=== PATIENT | female | born 1975 | race Caucasian/White ===

== ENCOUNTER 2017-02-06 07:07 | Day surgery (SDC) | payer SELFPAY ==
[~2017-02-06] VITALS: Ht 185.4 cm; Wt 104.3 kg
[2017-02-06] VITALS (8 sets, daily range): BP systolic 95–164; BP diastolic 50–82
[~2017-02-06 07:07] MED LIST: CEPH500C PO; MECL-124 PO; METO5TAB2 PO; NITR-65 PO; ONDA4TAB11 PO
--- OUTSIDE RECORDS SUMMARY | 2017-02-06 07:16 | XMS REPORT | Continuity of Care Document ---
Author Author [employer] Organization [facility] Address Unknown Phone Unavailable Care Team Providers Care Director Of Manufacturing Name Role Phone [employer] Unavailable Unavailable Problems Medications Allergies, Adverse Reactions, Alerts Immunizations Results Vital Signs Encounters Location Location Details Encounter Type Encounter Number Reason For Visit Attending Provider ADM Date DC Date Status Source OUTPATIENT [id number] RAJESH WYMAN 08/29/20162016 Active [facility] OUTPATIENT [id number] RAJESH WYMAN 11/28/20162016 Active [facility] OUTPATIENT 12/14/2016 Active [facility] OUTPATIENT [id number] 12/14/2016 Active [facility] Procedures Plan of Care Social History Assessment and Plan Family History Value Date Source Advance Directives Order Name Results Value Date Source
--- OUTSIDE RECORDS SUMMARY | 2017-02-06 07:16 | XMS REPORT | Clinical Summary ---
Author Author [facility] Organization [facility] Address Unknown Phone Unavailable Care Team Providers Care Spindle Plumber Name Role Phone PCP Unavailable Source Comments Some departments are not documenting in the electronic medical record. If you do not see the information that you expected, contact Release of Information in the Health Information Management department at [phone] for further assistance in locating additional records.[facility] Allergies Active Allergy Reactions Severity Noted Date Comments Prochlorperazine NAUSEA AND VOMITING, 05/17/2010 Edisylate BLURRED VISION Sumatriptan Succinate NAUSEA AND VOMITING 05/17/2010 Penicillins RASH 04/22/2010 Current Medications Prescription Sig. Disp. Refills Start End Date Status Date acetaminophen SR(+) Take 650 mg by mouth Active (TYLENOL ARTHRITIS) 650 every 6 hours as needed. mg PO tablet metoprolol tartrate Take 0.5 Tabs by mouth 180 Tab 1 07/27/19 Active (LOPRESSOR) 100 mg tablet three times daily. July 19 take an additional 1/2 tab for a total of 200mg/day ALPRAZolam (XANAX) 0.25 Take 1 Tab by mouth twice 60 Tab 5 09/15/19 Active mg tablet daily as needed for 17 Anxiety. Active Problems Problem Noted Date Pacemaker lead malfunction 03/31/2016 Overview: 03/2016 Noise on A lead, change sensitivity from auto to 1.0mV ICD (implantable cardioverter-defibrillator) malfunction 03/31/2016 Overview: Battery advisory for potential accelerated depletion 03/2016-normal to date, 3 years on battery, remote in place, vibratory alert on, educated etc Sustained VT (ventricular tachycardia) (HCC) 02/11/2015 Overview: 01/2015: off beta pati. Sustained monomrphic VT ~210BPM. Predominant 1:1 VA but some VA block. Term w/ ATP and w/ shocks. 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 02/11/2015 Syncope 05/20/2010 Family history of long QT syndrome 05/20/2010 Long QT syndrome 05/17/2010 Overview: S/p ICD on 05/2010 Son carries dx Mom has ICD (post arrest X 3) 08/13 Familion gene testing "negative" Pt has Long QT, syncope & NSVT (Symptoms w/ NSVT on TM are something she says are common and often associated with near syncope.) 07/14: admits rarely takes her beta pati-will redouble efforts Arthritis 04/22/2010 Restless leg syndrome 04/22/2010 Shortness of breath 04/22/2010 DJD (degenerative joint disease) 04/22/2010 Encounters Date Type Specialty Care Team Description 12/14/2016 [facility] Cardiology Yaneth Nguyen, Encounter AUTOMOBILE MECHANIC-LINE PALLETIZER 12/14/2016 Office Visit Cardiology Yaneth Nguyen, Swelling ( swelling of AUTOMOBILE MECHANIC-LINE PALLETIZER legs and hand); Panic Attack 12/14/2016 Documentation Cardiology Marco A Canchola, ALEXIS Records Request ([facility]) 12/13/2016 Telephone Cardiology Camila Dugan RN Follow-up Phone Call 11/28/2016 Hospital Cardiology Julissa Geiger MD Encounter 11/28/2016 Telephone Cardiology Anjelica Astorga, ALEXIS Appointment Request 11/21/2016 Telephone Cardiology Zunilda Cox, lubrication technician Question from Last 3 Months Family History Relation Name Status Comments Brother Alive Father COPD, TB (Age 47) Mother Alive age 49 has long QT, has defibrillator Other SON 17 HX OF Alive LONG QT SYN Sister Alive Social History Tobacco Use Types Packs/Day Years Used Date Never Smoker Smokeless Tobacco: Never Used Alcohol Use Drinks/Week oz/Week Comments No rare every 6 months Sex Assigned at Date Recorded Not on file Last Filed Vital Signs Vital Sign Reading Time Taken Blood Pressure 100/70 12/14/2016 1:46 PM CDT Pulse 70 12/14/2016 1:46 PM CDT Temperature 36.9 C (98.4 F) 02/11/2015 9:22 AM KNITTING MACHINE MECHANIC Respiratory Rate - - Oxygen Saturation 100% 02/11/2015 9:22 AM KNITTING MACHINE MECHANIC Inhaled Oxygen - - Concentration Weight 99.7 kg (219 lb 12.8 oz) 12/14/2016 1:46 PM CDT Height 182.9 cm (6') 12/14/2016 1:46 PM CDT Body Mass Index 29.81 12/14/2016 1:46 PM CDT Plan of Treatment Health Maintenance Due Date Last Done Comments PHYSICAL (COMPREHENSIVE) 1980 EXAM PERTUSSIS VACCINE 1984 TETANUS VACCINE 1990 CERVICAL CANCER SCREENING 07/04/2003 BREAST CANCER SCREENING 2013 INFLUENZA VACCINE 10/03/2016 Results * DEVICE EVALUATION - ICD (12/14/2016 3:14 PM) Component Value Ref Range Atrial Lead Model # Trendil 2088TC Atrial Lead Serial # [id number] Atrial Lead Implant Date 05/20/2010 Atrial Lead Diaph. 0 Stimulation Atrial Lead Tube Turner [facility] [place] Atrial Lead No Investigational Atrial Lead Fixation active fixation Atrial Lead Location right atrial appendage Atrial Lead Pin Connector IS1 Atrial Lead Polarity Bipolar RV Lead Model # Durata 7122 RV Lead Serial # [id number] RV Lead Implant Date 08/20/2010 RV Lead Diaph. 0 Stimulation RV Lead Tube Turner [facility] [place]hav[place] RV Lead Investigational No RV Lead Fixation active fixation RV Lead Location RV low septum RV Lead Coil Single Generator Model # FortifyDR [id number] Generator Serial # [id number] Generator Implnat Date 05/20/2010 KEYANNA/EOL Indicator programmer operator numerical control/transmitter indicated Generator Tube Turner [facility] [place]hav[place] Generator Investigational No Wireless Generator Yes Device Type DDD-ICD Device Mode DDD Lower Rate Limit 60 Upper Rate Limit 110 Sensor Rate Limit - Pace AV Delay 200+ VIP 200 Sense AV Delay 200+ VIP 200 VT Monitor - VT Detect Rate (bpm) 200 VT Detect Rate Tx ATP x 3 , shocks FVT Detect Rate (bpm) - FVT Detect Rate Tx - VF Detect Rate (bpm) 240bpm VF Detect Rate Tx ATP(1), 36Jx1, 40Jx5 Mode Switch (bpm) 190 bpm to DDI, AMS base rate 70 Mode Switch Status On Device Implanted By Julissa Geiger MD Pacemaker Dependant No Date of Last Programming 12/14/16 HF Patient Yes Date of Last Remote Check 11/28/16 Next Remote Check Due 02/2017 Enrollment Date gave cell adapter 02/11/15 AT/AF Daily [place] Hours 6 hr episode, 12 hrs per week Average Vent Rate during 100 AT/AF #BPM Average Vent Rate During 6 AT/AF #Hours Remote Monitoring? Yes Daily [place] Threshld On Alert? Average Venticular Rate On AT/AF On/Off VF Detection/Therapy Off On EP Device Followed by Dr. Geiger Name EP Device Followed By MAC Device [place] Inter[employer] On Demand Transmitter Compatible -VS% 96 -BELLY ROLLER% <1 -VS% 3.8 AP-BELLY ROLLER% <1 # Mode S. Events 4592 Time in AT/AF <1% # of VT Events 0 # of FVT Events 0 # of VF Events 0 # of NSVT Events 0 Single PVSc <1% Battery Voltage 31% Charge Time 9.0 Defib Lead Imped 62 A Sense mv 2.1 A Capture V 0.5 A Capture ms 0.5 A Lead ohms 350 RV Sense mv 7.1 RV Capture V 1.0 RV Capture ms 0.5 RV Lead ohms 340 Counters Clrd Yes Device Function WNL Yes Device Reprogram No Ao Voltage 1.5 AO Pulse Width 0.5 RV Voltage 2.0 RV Pulse Width 0.5 # High V Events 0 Estimated Longevity 2.5 to 3.0 years Initial Rhythm ASVS NSR 70 bpm Programming? Yes Interrogation? Yes ICM Evaluation Yes Remote Check? No Specimen Performing Laboratory OTHER OUTSIDE LAB Narrative [12/15/2016 6:34:54 AM - GREG MONGE] Dual chamber ICD programming + ICM.Device function appears normal. Events noted since 03/31/16: Atrial:4592 AMS episodes (<1% burden). Egms show noise on atrial lead. Known issue/previously documented. Atrial lead is stable. Ventricular:0 17 PMT detections. I was going to run a retrograde VA conduction test but pt became very anxious/nervous and I was unable to run. Thoracic Impedance trend shows possible fluid accumulation and/or possible early heart failure. Changes made to programming:none [place] remote monitoring is in place. Will continue to monitor. Report given to Yaneth Nguyen in clinic and sent to [facility] for review. * ECG/QRS (12/14/2016) Component Value Ref Range QRS DURATION 78 Specimen Performing Laboratory OTHER OUTSIDE LAB * DEVICE EVALUATION - REMOTE ICD (11/29/2016 10:02 AM) Component Value Ref Range Atrial Lead Tube Turner Other Atrial Lead Model # Trendil 2088TC Atrial Lead Serial # [id number] Atrial Lead Implant Date 05/20/2010 Atrial Lead Location Other Atrial Lead Polarity Other Atrial Lead Diaph. 0 Stimulation Atrial Lead Tube Turner [facility] [place]hav[place] Atrial Lead No Investigational Atrial Lead Fixation active fixation Atrial Lead Location right atrial appendage Atrial Lead Pin Connector IS1 Atrial Lead Polarity Bipolar RV Lead Tube Turner Other RV Lead Model # Durata 7122 RV Lead Serial # [id number] RV Lead Implant Date 08/20/2010 RV Lead Location Other RV Lead Diaph. 0 Stimulation RV Lead Tube Turner [facility] [place]hav[place] RV Lead Investigational No RV Lead Fixation active fixation RV Lead Location RV low septum RV Lead Pin Connector ICD RV Lead Coil Single Generator Tube Turner Other Generator Model # FortifyDR [id number] Generator Serial # [id number] Generator Implnat Date 05/20/2010 Advisory Info Advisory Info 2 Permanent Comments Permanent Comments 2 Permanent Comments 3 Permanent Comments 4 Permanent Comments 5 Permanent Comments 6 Permanent Comments 7 Research Comments Research Comments 2 KEYANNA/EOL Indicator programmer operator numerical control/transmitter indicated Generator Tube Turner [employer] [place] Generator Investigational No Wireless Generator Yes Device Type DDD-ICD Device Mode DDD Lower Rate Limit 60 Upper Rate Limit 110 Sensor Rate Limit - Pace AV Delay 200+ VIP 200 Sense AV Delay 200+ VIP 200 VT Monitor - VT Detect Rate (bpm) 200 VT Detect Rate Tx ATP x 3 , shocks FVT Detect Rate (bpm) - FVT Detect Rate Tx - VF Detect Rate (bpm) 240bpm VF Detect Rate Tx ATP(1), 36Jx1, 40Jx5 Mode Switch (bpm) 190 bpm to DDI, AMS base rate 70 High A Rate Detect High V Rate Detect Mode Switch Status On LV Lead Tube Turner Other LV Lead Model # LV Lead Serial # LV Lead Implant Date LV Lead Location Other LV Lead Polarity Other LV Lead Configuration Other LV Lead Tube Turner LV Lead Investigational LV Lead Fixation LV Lead Location LV Lead Pin Connector LV Lead Polarity LV Lead Configuration Other Implant Info Device Implanted By Julissa Geiger MD Pacemaker Dependant No Phone Check Next Due Date of Last Programming 03/31/16 Next Programming Check Due Date of Last 03/31/16 Interrogation Date of Last ICM 03/31/16 Evaluation Next ICM Check Due HF Patient Yes Date of Last Remote Check 05/18/16 Next Remote Check Due 08/2016 Enrollment Date gave cell adapter 02/11/15 Date of baseline remote transmission AT/AF Daily [place] Hours 6 hr episode, 12 hrs per week Average Vent Rate during 100 AT/AF #BPM Average Vent Rate During 6 AT/AF #Hours Remote Monitoring? Yes Daily [place] Threshld On Alert? Average Venticular Rate On AT/AF On/Off VF Detection/Therapy Off On EP Device Followed by Dr. Geiger Name EP Device Followed By MAC Device [place] Transmitter Device [place] [employer] On Demand Transmitter Compatible Specimen Performing Laboratory OTHER OUTSIDE LAB Narrative Current Monitoring Period: 11/28/16 through 02/26/17 [11/29/2016 10:03:10 AM - EVA ANDREWS] Scheduled [place] transmission received.Device function appears normal. Events noted since 08/29/16: Atrial:Multiple AMS events for <1% of the time in what appear to show noise on the atrial lead and marking on the channel - known and previously documented. Ventricular:None. CorVue does not currently suggest fluid overload. Please see scanned data sheets for further review as needed.Pt is scheduled to follow up sometime in April 2017 with [facility]DB at the office. from Last 3 Months
--- OUTSIDE RECORDS SUMMARY | 2017-02-06 07:17 | XMS REPORT | Encounter Summary ---
Author Author [facility] Organization [facility] Address Unknown Phone Unavailable Care Team Providers Care Manager Infrastructure Name Role Phone PCP Unavailable Reason for Visit * Reason Comments Records Request BLE US Encounter Details Date Type Department Care Team Description 12/14/2016 Documentation [facility] Cardiology Marco A Canchola, ALEXIS Records Request ([place]) [address] [place] [address] Social History Tobacco Use Types Packs/Day Years Used Date Never Smoker Smokeless Tobacco: Never Used Alcohol Use Drinks/Week oz/Week Comments No rare every 6 months Sex Assigned at Date Recorded Not on file as of this encounter Progress Notes * Marco A Canchola RN - 12/14/2016 1:52 PM CDT Records request faxed to [facility] Medical Records @ [phone]. * Marco A Canchola RN - 12/14/2016 1:52 PM CDT STAT Request for the following medical records for purpose of continuity of care : Has an appointment with Yaneth Nguyen NOW. Patient recently had an Ultrasound of BLE. Please send this report STAT. Please Fax to: [facility] Card[facility] - [phone] Yaneth Nguyen Attention: Sam Canchola RN Thank you in this encounter Plan of Treatment Not on fileas of this encounter Visit Diagnoses Not on filein this encounter
--- OUTSIDE RECORDS SUMMARY | 2017-02-06 07:17 | XMS REPORT | Encounter Summary ---
Author Author [facility] Organization [facility] Address Unknown Phone Unavailable Care Team Providers Care Tailing Machine Operator Name Role Phone PCP Unavailable Reason for Visit * Reason Comments Medication Question Encounter Details Date Type Department Care Team Description 11/21/2016 Telephone [facility] Cardiology Zunilda Cox RN Medication Question [id number] [place] [address] Social History Tobacco Use Types Packs/Day Years Used Date Never Smoker Alcohol Use Drinks/Week oz/Week Comments No rare every 6 months Sex Assigned at Date Recorded Not on file as of this encounter Miscellaneous Notes * Telephone Encounter - Zunilda Cox RN - 11/21/2016 12:30 PM CDT ----- Message from Noemi Mejia LPN sent at 11/21/2016 11:12 AM CDT ----- Regarding: Med question VM from patient on triage line. Said that she has question about how to take one of her medications. Call back at # [phone]. in this encounter Plan of Treatment Not on fileas of this encounter Visit Diagnoses Not on filein this encounter
--- OUTSIDE RECORDS SUMMARY | 2017-02-06 07:17 | XMS REPORT | Encounter Summary ---
Author Author [facility] Organization [facility] Address Unknown Phone Unavailable Care Team Providers Care Electronics Commodity Manager Name Role Phone PCP Unavailable Reason for Visit * Reason Comments Swelling swelling of legs and hand Panic Attack Encounter Details Date Type Department Care Team Description 12/14/2016 Office Visit [facility] Yaneth Nguyen, [place] ([place] [address] REHAN-CUSTOMER ACCOUNT SPECIALIST legs and hand); [address] [place] [address] [place] [address] [phone] Social History Tobacco Use Types Packs/Day Years Used Date Never Smoker Smokeless Tobacco: Never Used Alcohol Use Drinks/Week oz/Week Comments No rare every 6 months Sex Assigned at Date Recorded Not on file as of this encounter Last Filed Vital Signs Vital Sign Reading Time Taken Blood Pressure 100/70 12/14/2016 1:46 PM CDT Pulse 70 12/14/2016 1:46 PM CDT Temperature - - Respiratory Rate - - Oxygen Saturation - - Inhaled Oxygen - - Concentration Weight 99.7 kg (219 lb 12.8 oz) 12/14/2016 1:46 PM CDT Height 182.9 cm (6') 12/14/2016 1:46 PM CDT Body Mass Index 29.81 12/14/2016 1:46 PM CDT in this encounter Instructions * Patient Instructions - Yaneth Nguyen APRN-NP - 12/14/2016 2:30 PM CDT Your device interrogation today looks good. No concerning episodes of arrhythmia's Continue to follow with your primary physician for work up of your symptoms Follow up with Dr. Geiger in 1 year barring any changes in the interim Continue with remote defibrillator transmissions Call sooner for worsening or new complaints DO NOT TAKE ZOFRAN. in this encounter Progress Notes * Yaneth Nguyen APRN-NP - 12/14/2016 2:30 PM CDT Formatting of this note may be different from the original. Date of Service: 12/14/2016 Stacie Sorto is a 41 y.o. female. HPI Stacie Sorto was seen in the office today in electrophysiology follow up. As you may know, she is a 41 y.o. female, with past medical history including long QTc syndrome and dual chamber ICD in place for primary prevention. She does have a history of anxiety as well managed with as needed Xanax. She was last evaluated by her primary bobj developer, Dr. Julissa Geiger in April. She did contact our office requesting to be seen. Ms. Sorto reports that she has not been feeling herself over the last 3-4 weeks. She reports a multitude of complaints to include some nausea, lower extremity edema, palpitations and shaking of the right side of her body. She reports anxiety as well. She has been undergoing evaluation with her primary care physician. She did present to outside hospital emergency room on December 12 with complaints of shaking anxiety and headache. ECG at that time was found to be normal. She was treated with Ativan and pain medications for her headache and discharged to home. She states since that time she is continued to feel anxious with episodes of palpitations. Her list of medications initially included Zofran that was prescribed in the emergency department however she states that she has not filled or taken this. Vitals: 12/14/16 1346 BP: 100/70 Pulse: 70 Weight: 99.7 kg (219 lb 12.8 oz) Height: 1.829 m (6') Body mass index is 29.81 kg/(m^2). Past Medical History Patient Active Problem List Diagnosis Date Noted Pacemaker lead malfunction 03/31/201603/2016 Noise on A lead, change sensitivity from auto to 1.0mV ICD (implantable cardioverter-defibrillator) malfunction 03/31/2016 Battery advisory for potential accelerated depletion 03/2016-normal to date, 3 years on battery, remote in place, vibratory alert on , educated etc Sustained VT (ventricular tachycardia) (HCC) 02/11/201501/2015: off beta pati. Sustained monomrphic VT ~210BPM. [...] QT syndrome 05/20/2010 Long QT syndrome 05/17/2010 S/p ICD on 05/2010 Son carries dx [...] breath 04/22/2010 DJD (degenerative joint disease) 04/22/2010 Review of Systems Constitution: Positive for malaise/fatigue, night sweats and weight gain. HENT: Positive for tinnitus. Eyes: Positive for blurred vision and double vision. Cardiovascular: Positive for claudication, dyspnea on exertion, irregular heartbeat, leg swelling and palpitations. Respiratory: Positive for cough and shortness of breath. Endocrine: Positive for cold intolerance and heat intolerance. Hematologic/Lymphatic: Negative. Skin: Positive for color change, dry skin, flushing and itching. Musculoskeletal: Positive for arthritis, back pain, joint pain, joint swelling, muscle cramps, muscle weakness, myalgias, neck pain and stiffness. Gastrointestinal: Positive for bloating, dysphagia, flatus and heartburn. Genitourinary: Negative. Neurological: Positive for aphonia, brief paralysis, difficulty with concentration, excessive daytime sleepiness, dizziness, headaches, light- headedness, loss of balance, numbness, tremors and vertigo. Psychiatric/Behavioral: Positive for memory loss. Allergic/Immunologic: Negative. Physical Exam Constitutional: She appears well-developed and well-nourished. HENT: Head: Normocephalic and atraumatic. Eyes: Conjunctivae are normal. Cardiovascular: Normal rate, regular rhythm and normal heart sounds. Pulmonary/Chest: Effort normal and breath sounds normal. Musculoskeletal: She exhibits edema. Trace bipedal edema without pitting Neurological: She is alert and oriented to person, place, and time. Skin: Skin is warm and dry. Psychiatric: She has a normal mood and affect. Her behavior is normal. Cardiovascular Studies ICD interrogation in our office today shows no episodes of arrhythmia detections since her last evaluation. She does continue to have some brief episodes of mode switch related to atrial oversensing which is a known issue for her. This is a little less than 1% burden dating back to March 31 of this year. She did have some episodes of PMT detected however patient did not want us to perform retrograde VA testing. Problems Addressed Today Encounter Diagnoses Name Primary? 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 Yes Arthritis Restless leg syndrome Long QT syndrome Family history of long QT syndrome Sustained VT (ventricular tachycardia) (HCC) Malfunction of implantable cardioverter-defibrillator (ICD), subsequent encounter Assessment and Plan Ms. Sorto has been experiencing a multitude of symptoms over the last 3-4 weeks. She continues to be quite anxious. I understand that she is undergoing evaluation with her primary care physician. Device interrogation in our office today shows no episodes of concerning arrhythmias. I have provided reassurance for her today. I have made no adjustments to her regimen today. She is scheduled to return in 1 year's time for routine follow-up barring any changes in the interim. She will continue with her remote device interrogations from home as well. Of note she does have a alert on her [place] device for early battery depletion. She does continue to have 2.5-3 years longevity on device. As she does get closer to KEYANNA we may consider generator change out prior to formally reaching KEYANNA. We are monitoring her device more closely and have taken all of the appropriate steps to monitor this safely. Yaneth Nguyen, CUSTOMER ACCOUNT SPECIALIST-C Current Medications (including today's revisions) acetaminophen SR(+) (TYLENOL ARTHRITIS) 650 mg PO tablet Take 650 mg by mouth every 6 hours as needed. ALPRAZolam (XANAX) 0.25 mg tablet Take 1 Tab by mouth twice daily as needed for Anxiety. metoprolol tartrate (LOPRESSOR) 100 mg tablet Take 0.5 Tabs by mouth three times daily. May take an additional 1/2 tab for a total of 200mg/day in this encounter Plan of Treatment Name Priority Associated Diagnoses Order Schedule ECG 12-LEAD Routine Dual ICD (implantable Ordered: 12/14/2016 cardioverter-defibrillato r) in place as of this encounter Results * DEVICE EVALUATION - ICD (12/14/2016 3:14 PM) Component Value Ref Range Atrial Lead Model # Trendil 2088TC Atrial Lead Serial # [id number] Atrial Lead Implant Date 05/20/2010 Atrial Lead Diaph. 0 Stimulation Atrial Lead Promotions Associate [employer] Atrial Lead No Investigational Atrial Lead Fixation active fixation Atrial Lead Location right atrial appendage Atrial Lead Pin Connector IS1 Atrial Lead Polarity Bipolar RV Lead Model # Durata 7122 RV Lead Serial # [id number] RV Lead Implant Date 08/20/2010 RV Lead Diaph. 0 Stimulation RV Lead Promotions Associate [facility] [facility] RV Lead Investigational No RV Lead Fixation active fixation RV Lead Location RV low septum RV Lead Coil Single Generator Model # FortifyDR [id number] Generator Serial # [id number] Generator Implnat Date 05/20/2010 KEYANNA/EOL Indicator rpg programmer/transmitter indicated Generator Promotions Associate [facility] [facility] Generator Investigational No Wireless Generator [...] Date gave cell adapter 02/11/15 AT/AF Daily [place] Hours 6 hr episode, 12 hrs per week Average Vent Rate during 100 AT/AF #BPM Average Vent Rate During 6 AT/AF #Hours Remote Monitoring? Yes Daily [place] Threshld On Alert? Average Venticular Rate On AT/AF On/Off VF Detection/Therapy Off On EP Device Followed by Dr. Geiger Name EP Device Followed By MAC Device [place] Koko On Demand Transmitter Compatible -VS% 96 -JAVA GOLDEN GATE DEVELOPER% <1 -VS% 3.8 AP-JAVA GOLDEN GATE DEVELOPER% <1 # Mode S. Events 4592 Time [...] early heart failure. Changes made to programming:none Koko remote monitoring is in place. Will continue to monitor. Report given to Yaneth Nguyen in clinic and sent to [facility] for review. * ECG/QRS (12/14/2016) Component Value Ref Range QRS DURATION 78 Specimen Performing Laboratory OTHER OUTSIDE LAB in this encounter Visit Diagnoses Diagnosis 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 - Primary Arthritis Arthropathy, unspecified, site unspecified Restless leg syndrome Restless legs syndrome (RLS) Long QT syndrome Family history of long QT syndrome Family history of other cardiovascular diseases Sustained VT (ventricular tachycardia) (HCC) Paroxysmal ventricular tachycardia Malfunction of implantable cardioverter-defibrillator (ICD), subsequent encounter in this encounter
--- OUTSIDE RECORDS SUMMARY | 2017-02-06 07:17 | XMS REPORT | Encounter Summary ---
Author Author [facility] Organization [facility] Address Unknown Phone Unavailable Care Team Providers Care Planing Machine Operator Name Role Phone PCP Unavailable Encounter Details Date Type Department Care Team Description 11/28/2016 [facility] Cardiology Julissa Geiger MD Encounter Remote Device Check [address] [facility] [phone] [address] [place] [address] [phone] Social History Tobacco Use Types Packs/Day Years Used Date Never Smoker Alcohol Use Drinks/Week oz/Week Comments No rare every 6 months Sex Assigned at Date Recorded Not on file as of this encounter Medications at Time of Discharge Medication Sig. Disp. Refills Start Date End Date acetaminophen SR(+) Take 650 mg by mouth (TYLENOL ARTHRITIS) 650 every 6 hours as needed. mg PO tablet ALPRAZolam (XANAX) 0.25 Take 1 Tab by mouth twice 60 Tab 5 09/14/2016 mg tablet daily as needed for Anxiety. metoprolol tartrate Take 0.5 Tabs by mouth 180 Tab 1 07/26/2016 (LOPRESSOR) 100 mg tablet three times daily. May take an additional 1/2 tab for a total of 200mg/day as of this encounter Plan of Treatment Not on fileas of this encounter Results * DEVICE EVALUATION - REMOTE ICD (11/29/2016 10:02 AM) Component Value Ref Range Atrial Lead Quarry Manager Other Atrial Lead Model # Trendil 2088TC Atrial Lead Serial # [id number] Atrial Lead Implant Date 05/20/2010 Atrial Lead Location Other Atrial Lead Polarity Other Atrial Lead Diaph. 0 Stimulation Atrial Lead Quarry Manager [employer] [facility] Atrial Lead No Investigational Atrial Lead Fixation active fixation Atrial Lead Location right atrial appendage Atrial Lead Pin Connector IS1 Atrial Lead Polarity Bipolar RV Lead Quarry Manager Other RV Lead Model # Durata 7122 RV Lead Serial # [id number] RV Lead Implant Date 08/20/2010 RV Lead Location Other RV Lead Diaph. 0 Stimulation RV Lead Quarry Manager [facility] [place] RV Lead Investigational No RV Lead Fixation active fixation RV Lead Location RV low septum RV Lead Pin Connector ICD RV Lead Coil Single Generator Quarry Manager Other Generator Model # FortifyDR [id number] Generator Serial # [id number] Generator Implnat Date 05/20/2010 Advisory Info Advisory Info 2 Permanent Comments Permanent Comments 2 Permanent Comments 3 Permanent Comments 4 Permanent Comments 5 Permanent Comments 6 Permanent Comments 7 Research Comments Research Comments 2 KEYANNA/EOL Indicator delphi programmer/transmitter indicated Generator Quarry Manager [employer] [place] Generator Investigational No Wireless Generator [...] Detect Mode Switch Status On LV Lead Quarry Manager Other LV Lead Model # LV Lead Serial # LV Lead Implant Date LV Lead Location Other LV Lead Polarity Other LV Lead Configuration Other LV Lead Quarry Manager LV Lead Investigational LV Lead Fixation LV [...] Date of baseline remote transmission AT/AF Daily [place] Hours 6 hr episode, 12 hrs per week Average Vent Rate during 100 AT/AF #BPM Average Vent Rate During 6 AT/AF #Hours Remote Monitoring? Yes Daily [place] Threshld On Alert? Average Venticular Rate On AT/AF On/Off VF Detection/Therapy Off On EP Device Followed by Dr. Geiger Name EP Device Followed By MAC Device [place] Transmitter Device [place] [employer] On Demand Transmitter Compatible Specimen Performing Laboratory OTHER OUTSIDE LAB Narrative Current Monitoring Period: 11/28/16 through 02/26/17 [11/29/2016 10:03:10 AM - EVA ANDREWS] Scheduled Koko transmission received.Device function appears normal. Events noted [...] April 2017 with LDB at the office. in this encounter Visit Diagnoses Diagnosis Long QT syndrome Syncope, unspecified syncope type Sustained VT (ventricular tachycardia) (HCC) Paroxysmal ventricular tachycardia 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 in this encounter
--- OUTSIDE RECORDS SUMMARY | 2017-02-06 07:17 | XMS REPORT ---
Author CHERELLE Stinson Organization [employer] Address Unknown Phone Unavailable Care Team Providers Care Registered Pharmacist Name Role Phone CHERELLE CULVER CP Unavailable Allergies No Known Allergies Problems Problem Type Condition ICD-9 Code Onset Dates Condition Status Problem Fatigue 780.79 Active Problem Hx of prolonged Q-T interval on ECG V12.59 Active Problem Degenerative disc disease, lumbar 722.52 Active Problem Lower extremity neuropathy 355.8 Active Medications No Known Medications Results No Known Results Summary Purpose [employer] Submission
--- OUTSIDE RECORDS SUMMARY | 2017-02-06 07:17 | XMS REPORT ---
Author Author MISHA DIAZ Organization [employer] Address Unknown Phone Unavailable Care Team Providers Care Biology Instructor Name Role Phone MISHA DIAZ CP Unavailable Allergies, Adverse Reactions, Alerts Substance Reaction Event Type Compazine vomiting Drug Allergy Penicillin V Potassium rash Drug Allergy Problems Problem Type Condition ICD-9 Code Onset Dates Condition Status Problem Fatigue 780.79 Active Problem Hx of prolonged Q-T interval on ECG V12.59 Active Problem Degenerative disc disease, lumbar 722.52 Active Assessment Dyspnea 786.09 Active Assessment History of ventricular tachycardia V12.59 Active Problem Lower extremity neuropathy 355.8 Active Assessment Chest pain 786.50 Active Medications Medication Code System Code Instructions Start Date End Date Status Dosage Ibuprofen [facility] [address]-83 800 MG Orally Three times a day as needed 1 tablet Procedures Procedure Coding System Code Date Office Visit, New Pt., Level 4 CPT-4 20255 Nov 06, 2014 Vital Signs Date/Time: Nov 06, 2014 Temperature 97.6 F Weight 211.5 lbs Height 72 in BMI 28.68 Index Blood Pressure Diastolic 62 mmHg Blood Pressure Systolic 98 mmHg Cardiac Monitoring Heart Rate 72 bpm Results No Known Results Summary Purpose [employer] Submission
--- OUTSIDE RECORDS SUMMARY | 2017-02-06 07:17 | XMS REPORT | Encounter Summary ---
Author Author [facility] Organization [facility] Address Unknown Phone Unavailable Care Team Providers Care Spin Instructor Name Role Phone PCP Unavailable Encounter Details Date Type Department Care Team Description 12/14/2016 [facility] Cardiology Yaneth Nguyen, Encounter [id number] [address] PHYSICIAN GENERAL INTERNAL MEDICINE-FOOD SERVICE WORKER [address] [place], [place] [address] [place] [address] [phone] Social History Tobacco Use Types Packs/Day Years [...] # Trendil 2088TC Atrial Lead Serial # [id number] Atrial Lead Implant Date 05/20/2010 Atrial Lead Diaph. 0 Stimulation Atrial Lead Addiction Medicine Physician [facility] Atrial Lead No Investigational Atrial Lead Fixation active fixation Atrial Lead Location right atrial appendage Atrial Lead Pin Connector IS1 Atrial Lead Polarity Bipolar RV Lead Model # Durata 7122 RV Lead Serial # [id number] RV Lead Implant Date 08/20/2010 RV Lead Diaph. 0 Stimulation RV Lead Addiction Medicine Physician [facility] [facility] RV Lead Investigational No RV Lead Fixation active fixation RV Lead Location RV low septum RV Lead Coil Single Generator Model # FortifyDR [id number] Generator Serial # [id number] Generator Implnat Date 05/20/2010 KEYANNA/EOL Indicator engineering and scientific programmer/transmitter indicated Generator Addiction Medicine Physician [facility] Generator Investigational No Wireless Generator [...] Date gave cell adapter 02/11/15 AT/AF Daily [place] Hours 6 hr episode, 12 hrs per week Average Vent Rate during 100 AT/AF #BPM Average Vent Rate During 6 AT/AF #Hours Remote Monitoring? Yes Daily [place] Threshld On Alert? Average Venticular Rate On AT/AF On/Off VF Detection/Therapy Off On EP Device Followed by Dr. Geiger Name EP Device Followed By Super Device [employer] On Demand Transmitter Compatible -VS% 96 -DYNAMOMETER TESTER% <1 -VS% 3.8 AP-DYNAMOMETER TESTER% <1 # Mode S. Events 4592 Time [...] clinic and sent to [facility] for review. in this encounter Visit Diagnoses Diagnosis 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 in this encounter
--- OUTSIDE RECORDS SUMMARY | 2017-02-06 07:17 | XMS REPORT | Encounter Summary ---
Author Author [facility] Organization [facility] Address Unknown Phone Unavailable Care Team Providers Care Emotionally Impaired Teacher Name Role Phone PCP Unavailable Reason for Visit * Reason Comments Follow-up Phone Call Encounter Details Date Type Department Care Team Description 12/13/2016 Telephone [facility] Cardiology Camila Dugan RN Follow- up Phone Call [address] [place] [address] Social History Tobacco Use Types Packs/Day Years Used Date Never Smoker Alcohol Use Drinks/Week oz/Week Comments No rare every 6 months Sex Assigned at Date Recorded Not on file as of this encounter Miscellaneous Notes * Telephone Encounter - Camila Dugan RN - 12/13/2016 4:21 PM CDT Returned call to patient. Patient states yesterday Patient does not know if it was a panic attack or not. Patient took xanax and heart medication. Patient went to ED and she was given ativan, tordol, because she was having headache for 5 days. Worked patient into see Yaneth tomorrow, 12/14/16-patient states she will bring records with her. [facility]. * Telephone Encounter - Camila Dugan RN - 12/13/2016 4:21 PM CDT ----- Message from Noemi Mejia LPN sent at 12/13/2016 3:03 PM CDT ----- Regarding: Call back VM from patient on triage line. Said that she would like a call back. in this encounter Plan of Treatment Not on fileas of this encounter Visit Diagnoses Not on filein this encounter
--- OUTSIDE RECORDS SUMMARY | 2017-02-06 07:17 | XMS REPORT | Encounter Summary ---
Author Author [facility] Organization [facility] Address Unknown Phone Unavailable Care Team Providers Care Coat Repair Inspector Name Role Phone PCP Unavailable Reason for Visit * Reason Comments Appointment Request Encounter Details Date Type Department Care Team Description 11/28/2016 Telephone [facility] Cardiology Anjelica Astorga RN Appointment Request [id number] [place] [address] Social History Tobacco Use Types Packs/Day Years Used Date Never Smoker Alcohol Use Drinks/Week oz/Week Comments No rare every 6 months Sex Assigned at Date Recorded Not on file as of this encounter Miscellaneous Notes * Telephone Encounter - Melissa Bland RN - 11/30/2016 2:43 PM CDT Spoke with patient who tells me that she has increased SOB with walking up stairs/ hills for the last 1-2 weeks. She sleeps with 3 pillows at night. She does not weigh herself dialy but does believe that she has gained 15 lbs or so in the last few weeks per PCP scales. She also notes that her clothes are fitting more tightly in her legs as she has swelling bilaterally in her LE. It is even hard to bend her legs due to swelling. Offered patient multiple OV appts with LDB but she will have to CB after she talks with her boss. She has been compliant with her Lopressor. She does have PCP OV tomorrow am at 9 am. Patient will proceed to the ER if she has increased SOB. Will wait for her CB to schedule OV with LDB. * Telephone Encounter - Anjelica Astorga, RN - 11/28/2016 1:02 PM CDT Unable to reach patient, unable to leave a message. Need to assess patient symptoms. Will try to call patient again tomorrow. ----- Message from Kimberly Taveras sent at 11/28/2016 10:54 AM CDT ----- Regarding: Apt Request Pt having swelling in legs and it is hard to to bend them due to the swelling...Can I put her on 11/30/16@OP@1320 w/Fely? in this encounter Plan of Treatment Not on fileas of this encounter Visit Diagnoses Not on filein this encounter
--- OUTSIDE RECORDS SUMMARY | 2017-02-06 07:18 | XMS REPORT ---
Author Author KERLINE FRANCES Organization [employer] Address Unknown Phone Unavailable Care Team Providers Care Lining Vamper Name Role Phone KERLINE FRANCES CP Unavailable Allergies, Adverse Reactions, Alerts Substance Reaction Event Type Compazine vomiting Drug Allergy Penicillin V Potassium rash Drug Allergy Problems Problem Type Condition ICD-9 Code Onset Dates Condition Status Problem Fatigue 780.79 Active Problem Hx of prolonged Q-T interval on ECG V12.59 Active Problem Degenerative disc disease, lumbar 722.52 Active Problem Lower extremity neuropathy 355.8 Active Assessment Skin infection 686.9 Active Medications Medication Code System Code Instructions Start Date End Date Status Dosage Bactrim DS [facility] [address]-04 800-160 MG Orally 2 times a day Oct 29, 2014 Nov 08, 2014 1 tablet Ibuprofen [facility] [address]-05 800 MG Orally Three times a day as needed 1 tablet Procedures Procedure Coding System Code Date Office Visit, Est Pt., Level 4 CPT-4 47542 Oct 29, 2014 CULTURE, BACTERIA, OTHER CPT-4 93682 Oct 29, 2014 Vital Signs Date/Time: Oct 29, 2014 Temperature 97.1 F Weight 215.5 lbs Height 72 in BMI 29.22 Index Blood Pressure Diastolic 76 mmHg Blood Pressure Systolic 122 mmHg Cardiac Monitoring Heart Rate 78 bpm Results No Known Results Summary Purpose [employer] Submission
[2017-02-06 08:02] LABS: BASOPHILS # (AUTO) 0.1 10^3/uL (0.0-0.1); BASOPHILS % (AUTO) 1 % (0-10); EOSINOPHILS # (AUTO) 0.2 10^3/uL (0.0-0.3); EOSINOPHILS % (AUTO) 4 % (0-10); LYMPHOCYTES # (AUTO) 2.4 X 10^3 (1.0-4.0); LYMPHOCYTES % (AUTO) 38 % (12-44); MEAN CORPUSCULAR HEMOGLOBIN 30 PG (25-34); MEAN CORPUSCULAR HGB CONC 33 G/DL (32-36); MEAN CORPUSCULAR VOLUME 90 FL (80-99); MEAN PLATELET VOLUME 10.4 FL (7.4-10.4); MONOCYTES # (AUTO) 0.5 X 10^3 (0.0-1.0); MONOCYTES % (AUTO) 8 % (0-12); NEUTROPHILS % (AUTO) 49 % (42-75); PLATELET COUNT 273 10^3/uL (130-400); RED CELL DISTRIBUTION WIDTH 12.5 % (10.0-14.5); WHITE BLOOD COUNT 6.2 10^3/uL (4.3-11.0)
[2017-02-06 08:06] LABS: INR 0.9 (0.8-1.4); PROTHROMBIN TIME PATIENT 12.5 SEC (12.2-14.7)
[2017-02-06] MEDS ORDERED: IOHEXOL 240 MGI/ML 20 ML (OMNIPAQUE) VIAL IV ONE (08:30)
--- NOTE | 2017-02-06 08:59 | Pre-Procedure Progress Note ---
Pre-Procedure Progress Note H&P Reviewed The H&P was reviewed, patient examined and no changes noted. Date H&P Reviewed: Feb 06, 2017 Time H&P Reviewed: 08:00 Pre-Procedure Diagnosis: back pain MARTÍNEZ PACE MD Feb 06, 2017 08:59
[2017-02-06] MEDS ORDERED: ACETAMINOPHEN 500 MG TAB (TYLENOL) PO PRN (09:00)
--- NOTE | 2017-02-06 09:43 | Diagnostic Imaging Report ---
EXAMINATION: Fluoroscopic guided lumbar puncture with intrathecal contrast injection and myelogram performed. INDICATION: Back pain. FLUOROSCOPY TIME: 58 seconds CONSENT: Informed consent was obtained from the patient. The risks, benefits, potential complications and alternatives were reviewed and all questions answered to the patient's satisfaction. PROCEDURE: After sterile preparation and draping, 1% lidocaine was utilized for local anesthesia. Under fluoroscopic guidance, a 22-gauge spinal needle is advanced into the spinal canal at the level of L5/S1. Clear CSF is obtained. Under fluoroscopic visualization, 12 cc of intrathecal Omnipaque-[id number] is administered into the thecal sac. The patient tolerated the procedure well with no immediate complications. FINDINGS: Myelogram images demonstrate opacification of the thecal sac. . IMPRESSION: Successful fluoroscopic guided intrathecal contrast injection with myelogram obtained and a lumbar CT myelogram to follow. Dictated by: Dictated on workstation # [id number]
--- NOTE | 2017-02-06 11:06 | Diagnostic Imaging Report ---
PROCEDURE: CT lumbar spine with contrast. TECHNIQUE: Multiple contiguous axial images were obtained through the lumbar spine after the intrathecal administration of contrast. Sagittal and coronal reformations were then performed. INDICATION: Back pain. FINDINGS: There is normal alignment of the posterior spinal line. Normal alignment at the facet joints is also seen. There is no pars defect or fracture seen. The vertebral body heights are preserved. Disc heights are also preserved. There is good opacification of the thecal sac with normal appearance of the cauda equina and conus medullaris. T12/L1: No disc herniation, no spinal canal or foraminal stenosis. L1/2: No disc herniation, no spinal canal or foraminal stenosis. L2/3: No disc herniation, no spinal canal or foraminal stenosis. L3/4: No disc herniation, no spinal canal or foraminal stenosis. There is mild facet hypertrophy. L4/L5: No disc herniation, no spinal canal or foraminal stenosis. There is moderate facet hypertrophy bilaterally. L5/S1: There is a central disc protrusion with no significant central canal or lateral recess stenosis. There is bilateral moderate foraminal stenosis. IMPRESSION: Bilateral moderate foraminal stenosis at L5/S1 level. Dictated by: Dictated on workstation # [id number]
[2017-02-06] MEDS ORDERED: NS (IVPB) 250 ML ONE (12:09)
[2017-02-06] MEDS ORDERED: NS (IVPB) 250 ML IV ONE (12:15)
--- NOTE | 2017-02-06 12:54 | Diagnostic Imaging Report ---
PROCEDURE: CT cervical spine with contrast. TECHNIQUE: Axial CT cervical spine was performed with the use of intravenous contrast, the images were reconstructed in sagittal and coronal planes. INDICATION: Neck pain. FINDINGS: The alignment of the cervical spine is satisfactory. The vertebral body heights are preserved. Disc heights are also preserved. The alignment of the facet joints is satisfactory. No widening of the predental space. There is good opacification of the thecal sac. The spinal cord has normal caliber and contour. The foramen magnum and upper cervical canal are patent. C2/C3: No disc herniation and no spinal canal or foraminal stenosis. C3/C4: There is a mild central disc protrusion resulting in mild spinal canal stenosis reducing the AP dimension of the central canal to 9 mm. There are bilateral posteriorly projecting osteophytes from the uncovertebral joints resulting in mild stenosis of the right side of the spinal canal and moderate stenosis of the left side of the spinal canal with minimal compression of the left side aspect of the spinal cord. The foramina demonstrate mild narrowing bilaterally. C4/C5: There is no significant disc herniation. No central canal stenosis. There are bilateral posterior osteophytes from uncovertebral joint hypertrophy with mild narrowing of the lateral margins of the spinal canal without cord compression. The foramina demonstrate mild to moderate stenosis bilaterally. C5/C6: There is a mild disc herniation with reduced AP dimension of the central canal to 9.4 mm without cord compression. There is bilateral uncovertebral joint hypertrophy with associated mild AP narrowing of the lateral aspect of the spinal canal. The foramina demonstrate moderate to severe narrowing on the left side and mild narrowing on the right side. C6/C7: There is a minimal disc herniation with no central canal stenosis. There is uncovertebral joint hypertrophy with minimal narrowing of the AP dimension of the lateral aspect of the spinal canal on both sides. There is moderate to severe stenosis of the left foramen and mild to moderate stenosis on the right side. C7/T1: No disc herniation and no spinal canal or foraminal stenosis. IMPRESSION: There is multilevel prominent uncovertebral joint hypertrophy with posteriorly projecting osteophytes most prominent on the left side at C3/C4 level resulting in moderate narrowing of the AP dimension of the left side aspect of the spinal canal and minimal compression of the left side aspect of the spinal cord. There is also multilevel foraminal stenosis most prominent on the left side at C5/C6 and C6/C7 levels. Dictated by: Dictated on workstation # [id number]
--- NOTE | 2017-02-06 15:46 | History & Physical-Hospitalist ---
HPI History of Present Illness: HPI/Chief Complaint Pt is a 41yoCF with a PMH of prolonged QTc with defibrillator placement and back pain who underwent a myelogram today per Dr. Beebe. After the procedure during recovery she developed hypotension and dizziness. She had systolic BPs as low as 80. She reports she is normally in the high 90s-100s systolically but is not normally dizziness. She also feels as if her legs are heavy. She was given a 250cc bolus with short term improvement in BP. She denies any chest pain or SOB. She does have some palpitations but reports that is her baseline and they are not worse. She normally takes 50mg of Metoprolol TID and has taken 1 dose today only. Source: patient Exam Limitations: no limitations Date Seen 02/06/17 Time Seen by Provider: 15:15 Attending Physician Frank Hanna MD PCP No,Local Physician Referring Physician Date of Admission Home Medications & Allergies Home Medications Reviewed patient Home Medication Reconciliation Form Allergies Allergies Coded Allergies Penicillins (Unverified Allergy, Unknown, 08/11/14) Past Xpnopos-Jnyanc-Psynfi Hx Patient Social History Marrital Status: Employed/Student: employed Alcohol Use: Denies Use Recreational Drug Use: No Smoking Status: Never a Smoker Recent Foreign Travel: No Contact w/other who traveled: No Recent Hopitalizations: No Recent Infectious Disease Expo: No Immunizations Up To Date Tetanus Booster (TDap): Unknown Pediatric: Yes Seasonal Allergies Seasonal Allergies: No Surgeries Section, Defibrillator, Hysterectomy, Pacemaker Respiratory Currently Using CPAP: No Currently Using BIPAP: No Cardiovascular Hypertension, Irregular Heartbeat, Palpitations Neurological Headaches /Migraines, Neuropathy Reproductive System Hx : 3 Hx Para: 3 Hx Reproductive Disorders: No Sexually Transmitted Disease: No HIV/AIDS: No Female Reproductive Disorders: Endometriosis, 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 Musculoskeletal Degenerate Disk Disease, Chronic Back Pain Blood Transfusions Adverse Reaction to a Blood Tr: No Family Medical History Significant Family History: No Pertinent Family Hx Review of Systems Constitutional: No chills, dizziness, No fever, weakness EENTM: No blurred vision, No double vision, No nose congestion, No throat pain Respiratory: No cough, No dyspnea on exertion, No short of breath Cardiovascular: No chest pain, No edema, palpitations Gastrointestinal: No abdominal pain, constipation (chronic), No diarrhea, No nausea, No vomiting Genitourinary: No dysuria, No frequency Musculoskeletal: No joint pain, No muscle pain Skin: No lesions, No rash Psychiatric/Neurological: Denies Headache, Denies Numbness, Denies Tingling Physical Exam Physical Exam Vital Signs Vital Sign - Last 12Hours 02/06/17 08:20 Temp 98.0 Pulse 69 Resp 20 B/P (MAP) 118/72 Capillary Refill : Less Than 3 Seconds General Appearance: No Apparent Distress, WD/WN HEENT: PERRL/EOMI, Moist Mucous Membranes Neck: Non Tender, Supple Respiratory: Lungs Clear, No Respiratory Distress Cardiovascular: Regular Rate, Rhythm, No Murmur Gastrointestinal: Normal Bowel Sounds, Non Tender, Soft Extremity: Normal Capillary Refill, No Calf Tenderness Neurologic/Psychiatric: Alert, Oriented x3, Normal Mood/Affect Skin: Normal Color, Warm/Dry Results Results/Procedures Lab Laboratory Tests 02/06/17 07:48 Assessment/Plan Admission Diagnosis hypotension Diagnosis/Problems Diagnosis/Problems (1) Hypotension, postural Assessment & Plan: Symptoms with ambulation Will check orthostatics Start NS at 100ml/hr Review of records reveals similar symptoms with UTI 2 years ago, will check UA Will check BS as well Start on telemetry Hold metoprolol (2) Prolonged QT interval Assessment & Plan: Has defibrillator 2/2 to this Reports history of "asystole" to years ago Follows with Cardiology in Will consult Cardiology (3) Chronic back pain greater than 3 months duration Assessment & Plan: Follows with Dr Hanna Underwent myelogram today Continue pain meds from home (hydrocodone) (4) Prophylactic measure Assessment & Plan: NS @ 100ml/hr Reg diet SCDs FRANCK ROBINS MD Feb 06, 2017 15:46
[2017-02-06] MEDS ORDERED: HYDROcodone/APAP 5 MG/325 MG (LORTAB) TAB PO PRN (16:00)
[2017-02-06] MEDS: NS IV 1000 ML 1,000 ML IV SCH (16:27)
[2017-02-06] MEDS ORDERED: CATHETER FLUSH 10 ML SYR IV PRN (16:30)
[2017-02-06 16:35] LABS: ANION GAP 7 MMOL/L (5-14); BLOOD UREA NITROGEN 13 MG/DL (7-18); BUN/CREATININE RATIO 15; CALCIUM 9.1 MG/DL (8.5-10.1); CARBON DIOXIDE 27 MMOL/L (21-32); CHLORIDE 109 MMOL/L (98-107); CREATININE SERUM 0.88 MG/DL (0.60-1.30); GFR ESTIMATED > 60; GLUCOSE 90 MG/DL (70-105); POTASSIUM 4.3 MMOL/L (3.6-5.0); SODIUM 143 MMOL/L (135-145)
[2017-02-06] MEDS ORDERED: ALPR0.254 PO (17:04)
[2017-02-06] MEDS ORDERED: ESTR1TAB24 PO (17:04)
[2017-02-06] MEDS ORDERED: METO100T2 PO (17:04)
[2017-02-06] MEDS ORDERED: IBUP-1780 PO (17:04)
[2017-02-06 19:18] LABS: BILIRUBIN,URINE NEGATIVE (NEGATIVE); KETONES,URINE NEGATIVE (NEGATIVE); LEUKOCYTE ESTERASE ,URINE NEGATIVE (NEGATIVE); NITRITE,URINE NEGATIVE (NEGATIVE); PH,URINE 7 (5-9); PROTEIN,URINE NEGATIVE (NEGATIVE); UROBILINOGEN,URINE NORMAL (NORMAL)
[2017-02-06 19:32] LABS: WBC,URINE 0-2 /HPF
[2017-02-06] MEDS ORDERED: INFLUENZA TRIvalent 2017-2018 0.5 ML/45 MCG SYR IM ONE (20:30)
[2017-02-07] VITALS: BP 105/56
[2017-02-07] MEDS: NS IV 1000 ML 1,000 ML IV SCH (01:40)
[2017-02-07 04:00] VITALS: BP 99/65
[2017-02-07 05:32] LABS: BASOPHILS % (AUTO) 1 % (0-10); EOSINOPHILS # (AUTO) 0.2 10^3/uL (0.0-0.3); EOSINOPHILS % (AUTO) 4 % (0-10); LYMPHOCYTES # (AUTO) 2.4 X 10^3 (1.0-4.0); LYMPHOCYTES % (AUTO) 45 % (12-44); MEAN CORPUSCULAR HEMOGLOBIN 30 PG (25-34); MEAN CORPUSCULAR HGB CONC 33 G/DL (32-36); MEAN CORPUSCULAR VOLUME 91 FL (80-99); MEAN PLATELET VOLUME 10.6 FL (7.4-10.4); MONOCYTES # (AUTO) 0.6 X 10^3 (0.0-1.0); MONOCYTES % (AUTO) 11 % (0-12); NEUTROPHILS # (AUTO) 2.2 X 10^3 (1.8-7.8); NEUTROPHILS % (AUTO) 40 % (42-75); PLATELET COUNT 237 10^3/uL (130-400); RED BLOOD COUNT 4.16 10^6/uL (4.35-5.85); RED CELL DISTRIBUTION WIDTH 12.5 % (10.0-14.5); WHITE BLOOD COUNT 5.4 10^3/uL (4.3-11.0)
[2017-02-07 05:51] LABS: ANION GAP 8 MMOL/L (5-14); BLOOD UREA NITROGEN 12 MG/DL (7-18); BUN/CREATININE RATIO 15; CALCIUM 8.4 MG/DL (8.5-10.1); CARBON DIOXIDE 22 MMOL/L (21-32); CHLORIDE 111 MMOL/L (98-107); GFR ESTIMATED > 60; GLUCOSE 108 MG/DL (70-105); POTASSIUM 4.2 MMOL/L (3.6-5.0); SODIUM 141 MMOL/L (135-145)
[2017-02-07 08:23] VITALS: BP 115/76
--- NOTE | 2017-02-07 09:20 | Consultation-Cardiology ---
HPI-Cardiology Cardiology Consultation: Date of Consultation 02/07/17 Date of Admission Attending Physician Frank Hanna MD Admitting Physician Tomasa,Local Physician Consulting Physician Angela SWENSON MD HPI: Time Seen by Provider: 09:20 Chief Complaint: Hypotension This is a 41-year-old lady who has extensive cardiac history. She has complained of neck pain and was undergoing CT myelogram with Dr. Beebe; however during observation. The patient became significantly hypotensive with blood pressure of 85/43 mmHg. According to the patient when she showed up for the CT scan she was feeling warm and pale and anxiety. She was asked by her nurse to take her metoprolol and Xanax which she took. She denied having any shortness of breath or chest pain at that point in time. However after the CT myelogram her blood pressure dropped significantly. The patient as an outpatient complains of shortness of breath with exertion as well as occasional chest pain. The patient has history of cardiac arrest/syncope with pulmonary edema 6 years ago and was found to have prolonged QTC. Therefore a [employer] ICD was placed on 05/2010. According to the patient her ejection fraction was normal. 2 years ago the patient almost passed out and was very tachycardic. According to the patient it was in SVT and she had an inappropriate shock. Her metoprolol dose was increased at that point in time. Family history is positive for prolonged QT syndrome with the mother having an ICD. Son also has prolonged QTc interval however does not have an ICD at this point in time. The patient denies smoking and no alcohol in the last 2 years. Review of Systems-Cardiology Review of Systems Constitutional: No As described under HPI, No no symptoms reported, No chills, No fever, No lightheadedness, No malaise, tiredness, No weight loss, No weight gain, No other Eyes: No As described under HPI, No no symptoms reported, No blindness, No blurred vision, No contact lenses, No drainage, No decreased acuity, No foreign body sensation, No glasses, No inflammation, No pain, No photophobia, No previous injury, No shadows, No tunnel vision, No other, No vision change Ears/Nose/Throat: No As described under HPI, No no symptoms reported, No chronic hearing loss, No epistaxis, No ear discharge, No ear pain, No loose teeth, No mouth pain, No mouth swelling, No nasal drainage, No nose pain, No recent hearing loss, No throat pain, No throat swelling, No ulcerations, No other Respiratory: No no symptoms reported, No As described under HPI, No cough, No orthopnea, No shortness of breath, No SOB with excertion, No SOB at rest, No stridor, No wheezing, No other Cardiovascular: No no symptoms reported, No As described under HPI, No chest pain, No edema, No irregular heart rate, No lightheadedness, No palpitations, syncope (near syncope.), No other Gastrointestinal: No no symptoms reported, No As described under HPI, No abdomen distended, No abdominal pain, No blood streaked bowels, No constipation , No diarrhea, No difficulty swallowing, No nausea, No poor appetite, No poor fluid intake, No rectal bleeding, No vomiting, No other, No nausea/vomiting/ diarrhea, No stool coloration changes Genitourinary: No no symptoms reported, No As described under HPI, No burning, No dysuria, No discharge, No frequency, No flank pain, No hematuria, No incontinence, No pain, No urgency, No other, No urine frequency changes, No urine coloration changes Musculoskeletal: No no symptoms reported, No As describe under HPI, No back pain, No gout, No joint pain, No joint swelling, No muscle pain, No muscle stiffness, No neck pain, No other Skin: No no symptoms reported, No As described under HPI, No change in color, No change in hair/nails, No dryness, No lesions, No lumps, No rash, No other, No skin related problems, No ulcerations, No rash on exposed areas, No ulcerations on exposed areas Psychiatric/Neurological: No no symptoms reported, No As described under HPI, No anxiety, No depression, No emotional problems, No headache, No numbness, No pre-existing deficit, No seizure, No tingling, No tremors, No weakness, No other , No focal weakness, No syncope CJZ-Fsuyhs-Tvimmn Hx Patient Social History Marrital Status: Employed/Student: employed Alcohol Use: Denies Use Recreational Drug Use: No Smoking Status: Never a Smoker Recent Foreign Travel: No Recent Infectious Disease Expo: No Immunizations Up To Date Tetanus Booster (TDap): Unknown Past Medical History PMH As described under Assessment. Family Medical History Family History: Proloned QTC syndrome Allergies and Home Medications Allergies Coded Allergies: Penicillins (Unverified Allergy, Unknown, 08/11/14) Home Medications Alprazolam 0.25 Mg Tablet, 0.25 MG PO TID PRN for ANXIETY, (Reported) Estradiol 1 Mg Tablet, 1 MG PO DAILY, (Reported) LAST FILLED 10/22/16 #30 Ibuprofen 800 Mg Tablet, 800 MG PO Q8H PRN for PAIN-MILD, (Reported) Metoprolol Tartrate 100 Mg Tablet, 50 MG PO BID, (Reported) TAKES 1/2 OF A (100 MG) TABLET / LAST FILLED 10/23/16 #180 Physical Exam-Cardiology Physical Exam Vital Signs/I&O Vital Sign - Last 12Hours 02/07/17 02/07/17 02/07/17 01:00 04:00 08:23 Temp 97.5 98.0 Pulse 71 76 70 Resp 15 16 B/P (MAP) 99/65 (76) 115/76 (89) Pulse Ox 95 99 O2 Delivery Room Air Room Air Intake and Output 02/07/17 00:00 Intake Total 1656 ml Output Total 200 ml Balance 1456 ml Capillary Refill : Less Than 3 Seconds Data Review Labs Laboratory Tests 02/06/17 16:10: Sodium Level 143, Potassium Level 4.3, Chloride Level 109H, Carbon Dioxide Level 27, Anion Gap 7, Blood Urea Nitrogen 13, Creatinine 0.88, Estimat Glomerular Filtration Rate > 60, BUN/Creatinine Ratio 15, Glucose Level 90, Calcium Level 9.1 02/06/17 17:45: Troponin I < 0.30, B-Type Natriuretic Peptide 81.2 02/06/17 18:24: Urine Color YELLOW, Urine Clarity CLEAR, Urine pH 7, Urine Specific [place] 1.010L, Urine Protein NEGATIVE, Urine Glucose (UA) NEGATIVE, Urine Ketones NEGATIVE, Urine Nitrite NEGATIVE, Urine Bilirubin NEGATIVE, Urine Urobilinogen NORMAL, Urine Leukocyte Esterase NEGATIVE, Urine RBC (Auto) NEGATIVE, Urine RBC NONE, Urine WBC 0-2, Urine Squamous Epithelial Cells 10-25H, Urine Crystals NONE , Urine Bacteria FEWH, Urine Casts NONE, Urine Mucus NEGATIVE, Urine Culture Indicated NO 02/06/17 23:50: Troponin I < 0.30 02/07/17 05:10: White Blood Count 5.4, Red Blood Count 4.16L, Hemoglobin 12.4, Hematocrit 38, Mean Corpuscular Volume 91, Mean Corpuscular Hemoglobin 30, Mean Corpuscular Hemoglobin Concent 33, Red Cell Distribution Width 12.5, Platelet Count 237, Mean Platelet Volume 10.6H, Neutrophils (%) (Auto) 40L, Lymphocytes (%) (Auto) 45H, Monocytes (%) (Auto) 11, Eosinophils (%) (Auto) 4, Basophils (%) (Auto) 1, Neutrophils # (Auto) 2.2, Lymphocytes # (Auto) 2.4, Monocytes # (Auto) 0.6, Eosinophils # (Auto) 0.2, Basophils # (Auto) 0.0, Sodium Level 141, Potassium Level 4.2, Chloride Level 111H, Carbon Dioxide Level 22, Anion Gap 8, Blood Urea Nitrogen 12, Creatinine 0.80, Estimat Glomerular Filtration Rate > 60, BUN/ Creatinine Ratio 15, Glucose Level 108H, Calcium Level 8.4L ECG Impression ECG Initial ECG Rhythm: Normal Sinus Initial ECG Intervals QTc interval 486 ms A/P-Cardiology Assessment/Admission Diagnosis Hypotension, Prolonged QT syndrome, ICD, Chest pain, Shortness of breath Plan Hypotension: Improved significantly with IV fluids. Likely secondary to sedation and metoprolol. Echocardiogram shows hyperdynamic LV function suggesting dehydration. Prolonged QT syndrome: With history of cardiac arrest therefore ICD was placed. Inappropriate shock previously. ICD: Device interrogation is recommended before discharge. I have requested the RN to contact [facility]. Chest pain: Nuclear stress test as an outpatient. Shortness of breath The patient follows with cardiology in [place]. However she lives in [place] and would like to have electrophysiology follow-up closer to home. I have given her the contact information of my office and we'll be happy to see her as an outpatient if the patient would like to follow-up in [place]. Thank you for your consultation. Please call me if you have any questions. Mary Swenson MD, FACP, FACC, FSCAI, FHRS, CCDS Interventional Cardiology Cardiac Electrophysiology Vascular Medicine and Endovascular Interventions Clinical Quality Measures DVT/VTE Risk/Contraindication: Risk Factor Score Per Nursin RFS Level Per Nursing on Admit: 3=High Angela SWENSON MD Feb 07, 2017 09:20
[2017-02-07] MEDS ORDERED: meTOprolol TARTRATE 25 MG (LOPRESSOR) TABLET PO NR (09:39)
[2017-02-07 12:00] VITALS: BP 117/76
[2017-02-07 13:35] VITALS: BP 117/76
--- NOTE | 2017-02-07 15:27 | Discharge Summary-Hospitalist ---
Diagnosis/Chief Complaint Date of Admission Date of Discharge Admission Diagnosis hypotension Discharge Diagnosis Postural hypotension (1) Hypotension, postural Assessment & Plan: Symptoms with ambulation Start on telemetry Hold metoprolol Cardiology consulted, appreciate recs Echo showed EF 70% and grade [address] Swenson reviewed last interrogation of defibrillator (2) Prolonged QT interval Assessment & Plan: Has defibrillator 2/2 to this Reports history of "asystole" to years ago Follows with Cardiology in Cardiology consulted, appreciate recs (3) Chronic back pain greater than 3 months duration Assessment & Plan: Follows with Dr Hanna Underwent myelogram today Continue pain meds from home (hydrocodone) Discharge Summary Consultations Dr Swenson- Cardiology Discharge Physical Examination Allergies: Coded Allergies: Penicillins (Unverified Allergy, Unknown, 08/11/14) Vitals & I&Os Vital Signs Date Time Temp Pulse Resp B/P (MAP) Pulse Ox O2 Delivery O2 Flow Rate FiO2 02/07/17 13:35 84 20 117/76 98 Room Air 02/07/17 12:00 97.1 Hospital Course Patient presented for outpatient myelogram with Dr Beebe and in the recovery period had persistent symptomatic hypotension with standing and ambulating. She was given a 250cc bolus with short term improvement but had recurrent dizziness and hypotension. Decision was made to admit overnight given her cardiac history. She was monitored on telemetry and given maintenance fluids. By morning symptoms were resolved and BP was within normal limits. She felt ready for discharge and was able to ambulate without recurrence of symptoms. She is to follow up in 1-2 weeks with Messi Chen. Labs (last 24 hrs) Laboratory Tests 02/06/17 16:10: Sodium Level 143, Potassium Level 4.3, Chloride Level 109H, Carbon Dioxide Level 27, Anion Gap 7, Blood Urea Nitrogen 13, Creatinine 0.88, Estimat Glomerular Filtration Rate > 60, BUN/Creatinine Ratio 15, Glucose Level 90, Calcium Level 9.1 02/06/17 17:45: Troponin I < 0.30, B-Type Natriuretic Peptide 81.2 02/06/17 18:24: Urine Color YELLOW, Urine Clarity CLEAR, Urine pH 7, Urine Specific [place] 1.010L, Urine Protein NEGATIVE, Urine Glucose (UA) NEGATIVE, Urine Ketones NEGATIVE, Urine Nitrite NEGATIVE, Urine Bilirubin NEGATIVE, Urine Urobilinogen NORMAL, Urine Leukocyte Esterase NEGATIVE, Urine RBC (Auto) NEGATIVE, Urine RBC NONE, Urine WBC 0-2, Urine Squamous Epithelial Cells 10-25H, Urine Crystals NONE , Urine Bacteria FEWH, Urine Casts NONE, Urine Mucus NEGATIVE, Urine Culture Indicated NO 02/06/17 23:50: Troponin I < 0.30 02/07/17 05:10: White Blood Count 5.4, Red Blood Count 4.16L, Hemoglobin 12.4, Hematocrit 38, Mean Corpuscular Volume 91, Mean Corpuscular Hemoglobin 30, Mean Corpuscular Hemoglobin Concent 33, Red Cell Distribution Width 12.5, Platelet Count 237, Mean Platelet Volume 10.6H, Neutrophils (%) (Auto) 40L, Lymphocytes (%) (Auto) 45H, Monocytes (%) (Auto) 11, Eosinophils (%) (Auto) 4, Basophils (%) (Auto) 1, Neutrophils # (Auto) 2.2, Lymphocytes # (Auto) 2.4, Monocytes # (Auto) 0.6, Eosinophils # (Auto) 0.2, Basophils # (Auto) 0.0, Sodium Level 141, Potassium Level 4.2, Chloride Level 111H, Carbon Dioxide Level 22, Anion Gap 8, Blood Urea Nitrogen 12, Creatinine 0.80, Estimat Glomerular Filtration Rate > 60, BUN/ Creatinine Ratio 15, Glucose Level 108H, Calcium Level 8.4L Discharge Home Medications: Active Scripts Active Reported Ibuprofen 800 Mg Tablet 800 Mg PO Q8H PRN Estradiol Tablet (Estradiol) 1 Mg Tablet 1 Mg PO DAILY LAST FILLED 10/22/16 #30 Metoprolol Tartrate 100 Mg Tablet 50 Mg PO BID TAKES 1/2 OF A (100 MG) TABLET / LAST FILLED 10/23/16 #180 Alprazolam 0.25 Mg Tablet 0.25 Mg PO TID PRN Instructions to patient/family Please see electronic discharge instructions given to patient. Clinical Quality Measures DVT/VTE Risk/Contraindication: Risk Factor Score Per Nursin RFS Level Per Nursing on Admit: 3=High Copy Copies To 1: Angela SWENSON MD, KATELYN M MD Feb 07, 2017 15:27
== END 2017-02-07 13:35 | disposition home or self-care (01) ==
LOC: RAD 07:07 → 4TH 15:44 → RAD 02-07 13:35
PROVIDERS: ATTEND Orthopaedic Surgery Orthopaedic Surgery of the Spine
DX: M43.12 Spondylolisthesis, cervical region (principal); M54.12 Radiculopathy, cervical region; M54.16 Radiculopathy, lumbar region; Z95.810 Presence of automatic (implantable) cardiac defibrillator; I95.9 Hypotension, unspecified; F41.9 Anxiety disorder, unspecified
CPT/HCPCS: 36415; 62284; 72126; 72132; 72270; 77002; 80048; 81000; 83880; 84484; 85025; 85610; 85730; 93306

== ENCOUNTER 2017-04-03 05:17 | Emergency (ER) | payer SELFPAY ==
[~2017-04-03] VITALS: Ht 182.9 cm; Wt 89.4 kg
[~2017-04-03 05:17] MED LIST changes: +ALPR0.254 PO; +ESTR1TAB24 PO; +IBUP-1780 PO; +METO100T12 PO
--- OUTSIDE RECORDS SUMMARY | 2017-04-03 05:23 | XMS REPORT | Clinical Summary ---
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 If you do not see the information that you expected, contact Release of Information in the Health Information Management department at [phone] for further assistance in locating additional records.[facility] Allergies Active Allergy Reactions Severity Noted Date [...] Encounters Date Type Specialty Care Team Description 03/20/2017 [facility] Cardiology Julissa Geiger MD Encounter 02/06/2017 Telephone Cardiology Anjelica Astorga RN Error 02/06/2017 Telephone Cardiology Anjelica Astorga RN Provider Discussion About Patient from Last 3 Months Family History Relation [...] 36.9 C (98.4 F) 02/11/2015 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
--- OUTSIDE RECORDS SUMMARY | 2017-04-03 05:23 | XMS REPORT | Continuity of Care Document ---
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 Name Role Phone [employer] Unavailable Unavailable Problems Medications Allergies, Adverse Reactions, Alerts Immunizations Results Vital Signs Encounters Location Location Details Encounter Type Encounter Number Reason For Visit Attending Provider ADM Date DC Date Status Source OUTPATIENT [id number] RAJESH WYMAN 08/29/20162016 Active [facility] OUTPATIENT [id number] RAJESH WYMAN 11/28/20162016 Active [facility] OUTPATIENT [id number] CRISTY VALLES 12/14/20162016 Active [facility] O 03/20/2017 Active [facility] OUTPATIENT [id number] RAJESH WYMAN 03/20/20172017 Active [facility] Procedures Plan of Care Social History Assessment and Plan Family History Advance Directives Functional Status
--- OUTSIDE RECORDS SUMMARY | 2017-04-03 05:23 | XMS REPORT | Encounter Summary ---
Author Author [facility] Organization [facility] Address Unknown Phone Unavailable Care Team Providers Care Lead Vulcanizing Operator Name Role Phone Jovi Adams MD PCP Maggie Lama MD 100 Reason for Visit * Reason Comments Error Encounter Details Date Type Department Care Team Description 02/06/2017 Telephone [facility] Cardiology Anjelica Astorga RN Error [id number] [place] [address] Social History Tobacco Use Types Packs/Day Years Used Date Never Smoker Smokeless Tobacco: Never Used Alcohol Use Drinks/Week oz/Week Comments No rare every 6 months Sex Assigned at Date Recorded Not on file as of this encounter Plan of Treatment Not on fileas of this encounter Visit Diagnoses Not on filein this encounter
--- OUTSIDE RECORDS SUMMARY | 2017-04-03 05:23 | XMS REPORT | Encounter Summary ---
Author Author [facility] Organization [facility] Address Unknown Phone Unavailable Care Team Providers Care Lithograph Press Operator Name Role Phone Jovi Adams MD PCP Maggie Lama MD 100 Reason for Visit * Reason Comments Provider Discussion About Patient Encounter Details Date Type Department Care Team Description 02/06/2017 Telephone [facility] Cardiology Anjelica Astorga, ALEXIS Provider Discussion About [address] Patient [address] [place] [address] Social History Tobacco Use Types Packs/Day Years Used Date Never Smoker Smokeless Tobacco: Never Used Alcohol Use Drinks/Week oz/Week Comments No rare every 6 months Sex Assigned at Date Recorded Not on file as of this encounter Miscellaneous Notes * Telephone Encounter - Anjelica Astorga RN - 02/06/2017 3:08 PM RESOURCE ANALYST ----- Message from Noemi Mejia LPN sent at 02/06/2017 2:59 PM RESOURCE ANALYST ----- Regarding: LDB- URGENT VM on triage line from Lizbeth in radiology at [facility] in [place], [place] # [phone]. Said that she is there for Myelogram and is having some heart issues. Dr. Thao would like to talk to LDB about the heart issues to make sure they are normal. in this encounter Plan of Treatment Not on fileas of this encounter Visit Diagnoses Not on filein this encounter
--- OUTSIDE RECORDS SUMMARY | 2017-04-03 05:23 | XMS REPORT | Encounter Summary ---
Author Author [facility] Organization [facility] Address Unknown Phone Unavailable Care Team Providers Care Jewelry Casting Model Maker Name Role Phone Jovi Adams MD PCP Maggie Lama MD 100 Encounter Details Date Type Department Care Team Description 03/20/2017 [facility] Cardiology Julissa Geiger MD Encounter Remote Device Check [address] [facility] [phone] [address] [place] [address] [phone] Social History Tobacco Use Types Packs/Day Years [...] on fileas of this encounter Visit Diagnoses Diagnosis Long QT syndrome Syncope, unspecified syncope type Sustained VT (ventricular tachycardia) (HCC) Paroxysmal ventricular tachycardia 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
[2017-04-03] MEDS ORDERED: LACTATED RINGERS 1,000 ML IV ONE (05:31)
[2017-04-03] MEDS ORDERED: ONDANSETRON 4 MG/2 ML (SDV) Z0FRAN IVP ONE (05:45)
[2017-04-03 06:00] LABS: BASOPHILS % (AUTO) 0 % (0-10); EOSINOPHILS % (AUTO) 0 % (0-10); HEMATOCRIT 46 % (35-52); HEMOGLOBIN 15.2 G/DL (11.5-16.0); LYMPHOCYTES # (AUTO) 0.8 X 10^3 (1.0-4.0); LYMPHOCYTES % (AUTO) 8 % (12-44); MEAN CORPUSCULAR HEMOGLOBIN 30 PG (25-34); MEAN CORPUSCULAR HGB CONC 33 G/DL (32-36); MEAN CORPUSCULAR VOLUME 89 FL (80-99); MEAN PLATELET VOLUME 10.4 FL (7.4-10.4); MONOCYTES # (AUTO) 0.6 X 10^3 (0.0-1.0); MONOCYTES % (AUTO) 6 % (0-12); NEUTROPHILS # (AUTO) 8.4 X 10^3 (1.8-7.8); NEUTROPHILS % (AUTO) 86 % (42-75); PLATELET COUNT 233 10^3/uL (130-400); RED BLOOD COUNT 5.12 10^6/uL (4.35-5.85); RED CELL DISTRIBUTION WIDTH 13.2 % (10.0-14.5); WHITE BLOOD COUNT 9.8 10^3/uL (4.3-11.0)
[2017-04-03 06:03] LABS: BILIRUBIN,URINE NEGATIVE (NEGATIVE); CLARITY,URINE VERY CLOUDY; COLOR,URINE YELLOW; GLUCOSE, URINE (UA) NEGATIVE (NEGATIVE); KETONES,URINE NEGATIVE (NEGATIVE); LEUKOCYTE ESTERASE ,URINE 3+ (NEGATIVE); NITRITE,URINE NEGATIVE (NEGATIVE); PH,URINE 5 (5-9); PROTEIN,URINE 2+ (NEGATIVE); UROBILINOGEN,URINE NORMAL (NORMAL)
[2017-04-03 06:10] LABS: BACTERIA,URINE LARGE /HPF
--- NOTE | 2017-04-03 06:10 | ED GI ---
General Chief Complaint: Abdominal/GI Problems Stated Complaint: VOMITING,ABD PAIN,DIARRHEA Nursing Triage Note: n/v/d abdominal pain x3hrs Sepsis Screen: No Definite Risk Source of Information: Patient, Other Exam Limitations: No Limitations History of Present Illness Date Seen by Provider: Apr 03, 2017 Time Seen by Provider: 06:05 Initial Comments Patient presents to ER by private conveyance with a chief complaint that yesterday evening she ate some barbecue roast which she feels may not been properly prepared by one of her roommates. A few hours later she began to have upset stomach, abdominal pain in her epigastric region as she vomited and had watery diarrhea. There is no blood in either the vomitus or diarrhea. She does not have irritable bowel or inflammatory bowel disease. She does have a history of surgery , laparoscopic expiratory for possible endometriosis, gallbladder removed. She's not had this chronically in the past. She has had no fevers or chills or sweats. Allergies and Home Medications Allergies Coded Allergies: Penicillins (Unverified Allergy, Unknown, 08/11/14) Home Medications Metoprolol Tartrate 100 Mg Tablet, 50 MG PO BID, (Reported) TAKES 1/2 OF A (100 MG) TABLET / LAST FILLED 10/23/16 #180 Review of Systems Constitutional: No chills, No diaphoresis EENTM: No Blurred Vision, No Double Vision Respiratory: Denies Cough, Denies Shortness of Air Cardiovascular: Denies Chest Pain, Denies Edema Gastrointestinal: Denies Abdomen Distended, Abdominal Pain (epigastric), Denies Constipated, Diarrhea, Nausea, Denies Rectal Bleeding, Vomiting Genitourinary: Denies Burning, Denies Discharge Musculoskeletal: No back pain, No joint pain Skin: No pruritus, No rash Psychiatric/Neurological: Denies Headache, Denies Numbness, Denies Paresthesia Past Jfqlwyi-Iunxct-Jrhodb Hx Patient Social History Alcohol Use: Denies Use Recreational Drug Use: No Smoking Status: Never a Smoker 2nd Hand Smoke Exposure: No Recent Foreign Travel: No Contact w/Someone Who Travel: No Recent Infectious Disease Expo: No Recent Hopitalizations: No Immunizations Up To Date Tetanus Booster (TDap): Unknown PED Vaccines UTD: Yes Seasonal Allergies Seasonal Allergies: No Surgeries History of Surgeries: Yes Surgeries: Section, Defibrillator, Hysterectomy, Pacemaker Respiratory History of Respiratory Disorde: No Currently Using CPAP: No Currently Using BIPAP: No Cardiovascular History of Cardiac Disorders: Yes (PROLONGED Qtc) Cardiac Disorders: Hypertension, Irregular Heartbeat, Palpitations Neurological History of Neurological Disord: Yes Neurological Disorders: Headaches /Migraines, Neuropathy Reproductive System : No Hx Reproductive Disorders: No Sexually Transmitted Disease: No HIV/AIDS: No Female Reproductive Disorders: Endometriosis, Ovarian Cyst 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 Gastrointestinal History of Gastrointestinal Di: No Musculoskeletal History of Musculoskeletal Dis: Yes Musculoskeletal Disorders: Degenerate Disk Disease, Chronic Back Pain Endocrine History of Endocrine Disorders: No Cancer History of Cancer: No Psychosocial History of Psychiatric Problem: No Integumentary History of Skin or Integumenta: No Blood Transfusions History of Blood Disorders: No Adverse Reaction to a Blood Tr: No Family Medical History Significant Family History: No Pertinent Family Hx Family Medial History: Proloned QTC syndrome Physical Exam Vital Signs VS - Last 72 Hours, by Label 04/03/17 05:38 Temp 97.2 Pulse 111 Resp 18 B/P (MAP) 102/79 (87) Pulse Ox 97 O2 Delivery Room Air Capillary Refill : Less Than 3 Seconds General Appearance: WD/WN, no apparent distress HEENT: PERRL/EOMI, pharynx normal (oral mucosa is mildly dry) Neck: non-tender, normal inspection Respiratory: chest non-tender, lungs clear, normal breath sounds Cardiovascular: normal peripheral pulses, regular rate, rhythm, no edema Peripheral Pulses: 2+ Radial Pulses (R), 2+ Radial Pulses (L) Gastrointestinal: normal bowel sounds (not hyperactive), soft, no organomegaly , tenderness (mild tenderness in the epigastric region. Negative for Christensen sign or tenderness over McBurney's point.) Neurologic/Psychiatric: alert, normal mood/affect, oriented x 3 Skin: normal color, warm/dry Progress/Results/Core Measures Results/Orders Lab Results Laboratory Tests Test 04/03/17 05:47 04/03/17 05:50 Range/Units Urine Color YELLOW Urine Clarity VERY CLOUDY H Urine pH 5 5-9 Urine Specific [place] 1.020 1.016-1.022 Urine Protein 2+ H NEGATIVE Urine Glucose (UA) NEGATIVE NEGATIVE Urine Ketones NEGATIVE NEGATIVE Urine Nitrite NEGATIVE NEGATIVE Urine Bilirubin NEGATIVE NEGATIVE Urine Urobilinogen NORMAL NORMAL MG/DL Urine Leukocyte Esterase 3+ H NEGATIVE Urine RBC (Auto) 2+ H NEGATIVE Urine RBC 5-10 H /HPF Urine WBC 10-25 H /HPF Urine Squamous Epithelial Cells 5-10 /HPF Urine Crystals NONE /LPF Urine Bacteria LARGE H /HPF Urine Casts NONE /LPF Urine Mucus LARGE H /LPF Urine Culture Indicated YES White Blood Count 9.8 4.3-11.0 10^3/uL Red Blood Count 5.12 4.35-5.85 10^6/uL Hemoglobin 15.2 11.5-16.0 G/DL Hematocrit 46 35-52 % Mean Corpuscular Volume 89 80-99 FL Mean Corpuscular Hemoglobin 30 25-34 PG Mean Corpuscular Hemoglobin Concent 33 32-36 G/DL Red Cell Distribution Width 13.2 10.0-14.5 % Platelet Count 233 130-400 10^3/uL Mean Platelet Volume 10.4 7.4-10.4 FL Neutrophils (%) (Auto) 86 H 42-75 % Lymphocytes (%) (Auto) 8 L 12-44 % Monocytes (%) (Auto) 6 0-12 % Eosinophils (%) (Auto) 0 0-10 % Basophils (%) (Auto) 0 0-10 % Neutrophils # (Auto) 8.4 H 1.8-7.8 X 10^3 Lymphocytes # (Auto) 0.8 L 1.0-4.0 X 10^3 Monocytes # (Auto) 0.6 0.0-1.0 X 10^3 Eosinophils # (Auto) 0.0 0.0-0.3 10^3/uL Basophils # (Auto) 0.0 0.0-0.1 10^3/uL Sodium Level 141 135-145 MMOL/L Potassium Level 3.8 3.6-5.0 MMOL/L Chloride Level 106 98-107 MMOL/L Carbon Dioxide Level 23 21-32 MMOL/L Anion Gap 12 5-14 MMOL/L Blood Urea Nitrogen 13 7-18 MG/DL Creatinine 0.91 0.60-1.30 MG/DL Estimat Glomerular Filtration Rate > 60 BUN/Creatinine Ratio 14 Glucose Level 133 H 70-105 MG/DL Calcium Level 9.6 8.5-10.1 MG/DL Total Bilirubin 0.7 0.1-1.0 MG/DL Aspartate Amino Transf (AST/SGOT) 26 5-34 U/L Alanine Aminotransferase (ALT/SGPT) 28 0-55 U/L Alkaline Phosphatase 62 40-136 U/L Total Protein 7.8 6.4-8.2 GM/DL Albumin 4.5 3.2-4.5 GM/DL Amylase Level 70 25-125 U/L Lipase 34 8-78 U/L Medications Given in ED Current Medications Medications Dose Ordered Sig/Niurka Route Start Time Stop Time Status Last Admin Dose Admin Lactated Ringer's 1,000 ml @ 0 mls/hr Q0M ONCE IV 04/03/17 05:31 04/03/17 05:33 DC 04/03/17 05:48 0 MLS/HR Ondansetron HCl 4 mg ONCE ONCE IVP 04/03/17 05:45 04/03/17 05:46 DC 04/03/17 05:48 4 MG Vital Signs/I&O Vital Sign - Last 12Hours 04/03/17 05:38 Temp 97.2 Pulse 111 Resp 18 B/P (MAP) 102/79 (87) Pulse Ox 97 O2 Delivery Room Air Blood Pressure Mean: 87 Progress Note : Time: 06:07 Progress Note Possible preformed toxin versus viral gastroenteritis versus much less likely bacterial gastroenteritis. Plan to give her some fluids and nausea medicines and a finger symptoms under control but her go home with a fluid intake regimen. Departure Impression Impression: Primary Impression: Urinary tract infection Qualified Codes: N30.01 - Acute cystitis with hematuria Additional Impression: Gastroenteritis Disposition: HOME, SELF-CARE Condition: Improved Departure-Patient Inst. Decision time for Depature: 06:47 Referrals: DANYELLE SMITH DO (PCP/Family) Primary Care Physician Patient Instructions: Acute Cystitis (DC) Add. Discharge Instructions: Use the nausea medicine one tablet every 6 hours as needed and try and drink some fluids to keep your intake up with your putting out fluids. If you don't feel that you're able to keep up with your fluid intake then you can follow-up. For the first day just do not take any Pepto-Bismol or antidiarrheal medicine. Eat a bland, high-fiber foods such as bananas, rice, applesauce, toast. Start the antibiotics 1 capsule twice a day to completion. All discharge instructions reviewed with patient and/or family. Voiced understanding. Scripts Nitrofurantoin Macrocrystal (Nitrofurantoin) 100 Mg Capsule 100 MG PO BID, #14 CAP 0 Refills Prov: MORGAN LEON 04/03/17 Ondansetron (Ondansetron Odt) 4 Mg Tab.rapdis 4 MG PO Q6H Y for NAUSEA/VOMITING, #8 TAB 0 Refills Prov: MORGAN LEON 04/03/17 Work/School Note: Work Release Form Date Seen in the Emergency Department: Apr 03, 2017 Return to Work: Apr 04, 2017 Restrictions: No Restrictions Copy Copies To 1: DANYELLE SMITH TITUS J Apr 03, 2017 06:10
[2017-04-03 06:17] LABS: ALANINE AMINOTRANSFERASE 28 U/L (0-55); ALBUMIN 4.5 GM/DL (3.2-4.5); ALKALINE PHOSPHATASE 62 U/L (40-136); AMYLASE 70 U/L (25-125); BILIRUBIN,TOTAL 0.7 MG/DL (0.1-1.0); BUN/CREATININE RATIO 14; CALCIUM 9.6 MG/DL (8.5-10.1); CARBON DIOXIDE 23 MMOL/L (21-32); CHLORIDE 106 MMOL/L (98-107); CREATININE SERUM 0.91 MG/DL (0.60-1.30); GFR ESTIMATED > 60; GLUCOSE 133 MG/DL (70-105); LIPASE 34 U/L (8-78); POTASSIUM 3.8 MMOL/L (3.6-5.0); SODIUM 141 MMOL/L (135-145); TOTAL PROTEIN 7.8 GM/DL (6.4-8.2)
[2017-04-03] MEDS ORDERED: ONDA4TAB11 PO (06:49)
[2017-04-03] MEDS ORDERED: NITR100C PO (06:49)
[2017-04-03 06:55] VITALS: BP 97/69
== END 2017-04-03 06:55 | disposition home or self-care (01) ==
LOC: EDUNIT# 05:17 → ER 05:20
DX: N39.0 Urinary tract infection, site not specified (principal); K52.9 Noninfective gastroenteritis and colitis, unspecified; I10 Essential (primary) hypertension; G43.909 Migraine, unspecified, not intractable, without status migrainosus; Z87.448 Personal history of other diseases of urinary system; Z88.0 Allergy status to penicillin; Z87.59 Personal history of other complications of pregnancy, childbirth and the puerperium; Z95.810 Presence of automatic (implantable) cardiac defibrillator; Z90.710 Acquired absence of both cervix and uterus
CPT/HCPCS: 36415; 80053; 81000; 82150; 83690; 85025; 87088; 87186; 96361; 96374